=== PATIENT | female | born 1960 | race American Indian/Alaskan Native ===

== ENCOUNTER 2017-09-25 12:51 | Emergency (ER) | payer BC, OTHER ==
--- NOTE | 2017-09-25 13:07 | EDM.PDOC ---
ED HPI GENERAL MEDICAL PROBLEM - General Chief Complaint: General Stated Complaint: high blood sugar Time Seen by Provider: 09/25/17 13:03 - History of Present Illness INITIAL COMMENTS - FREE TEXT/NARRATIVE: HISTORY AND PHYSICAL: History of present illness: Patient 57-year-old female was sent from oncology for hyperglycemia patient a known diabetic and does have a sliding scale her blood sugar is noted to be 550 she is currently receiving polytherapy for an osteomyelitis she states her sliding scale requires 15 units for blood sugar greater than 500. She denies any other complaints Review of systems: As per history of present illness and below otherwise all systems reviewed and negative. Past medical history: As per history of present illness and as reviewed below otherwise noncontributory. Surgical history: As per history of present illness and as reviewed below otherwise noncontributory. Social history: No reported history of drug or alcohol abuse. Family history: As per history of present illness and as reviewed below otherwise noncontributory. Physical exam: HEENT: Atraumatic, normocephalic, pupils reactive, negative for conjunctival pallor or scleral icterus, mucous membranes moist, throat clear, neck supple, nontender, trachea midline. Lungs: Clear to auscultation, breath sounds equal bilaterally, chest nontender. Heart: S1S2, regular, negative for clicks, rubs, or JVD. Abdomen: Soft, nondistended, nontender. Negative for masses or hepatosplenomegaly. Negative for costovertebral tenderness. Pelvis: Stable nontender. Genitourinary: Deferred. Rectal: Deferred. Extremities: negative for cords or calf pain. Neurovascular unremarkable. Neuro: Awake, alert, oriented. Cranial nerves II through XII unremarkable. Cerebellum unremarkable. Motor and sensory unremarkable throughout. Exam nonfocal. Diagnostics: Patient's labs were reviewed Therapeutics: Saline 1 L bolus Regular Insulin 15 units subcutaneous Impression: #1 hyperglycemia with insulin-dependent diabetes #2 history of osteomyelitis Definitive disposition and diagnosis as appropriate pending reevaluation and review of above. - Related Data Allergies Allergy/AdvReac Type Severity Reaction Status Date / Time No Known Allergies Allergy Verified 09/18/17 22:37 ED ROS GENERAL - Review of Systems Review Of Systems: ROS reveals no pertinent complaints other than HPI. ED EXAM, GENERAL - Physical Exam Exam: See Below (The dictation) Departure - Departure Time of Disposition: 13:06 Disposition: Home, Self-Care 01 Condition: Good Clinical Impression: Diabetes, History of osteomyelitis - Discharge Information Referrals: PCP,None [Primary Care Provider] - Additional Instructions: The following information is given to patients seen in the emergency department who are being discharged to home. This information is to outline your options for follow-up care. We provide all patients seen in our emergency department with a follow-up referral. The need for follow-up, as well as the timing and circumstances, are variable depending upon the specifics of your emergency department visit. If you don't have a primary care physician on staff, we will provide you with a referral. We always advise you to contact your personal physician following an emergency department visit to inform them of the circumstance of the visit and for follow-up with them and/or the need for any referrals to a consulting specialist. The emergency department will also refer you to a specialist when appropriate. This referral assures that you have the opportunity for followup care with a specialist. All of these measure are taken in an effort to provide you with optimal care, which includes your followup. Under all circumstances we always encourage you to contact your private physician who remains a resource for coordinating your care. When calling for followup care, please make the office aware that this follow-up is from your recent emergency room visit. If for any reason you are refused follow-up, please contact the [facility] emergency department at and asked to speak to the emergency department charge nurse. Follow-up oncology and primary medical doctor as discussed sliding scale as directed push fluids return as needed as discussed
[2017-09-25] MEDS ORDERED: Sodium Chloride 0.9% 1,000 ML IV STA (13:12)
[2017-09-25] MEDS ORDERED: Insulin Regular, Human 100 Units/ML 10 ML Vial SUBCUT STA (13:12)
== END 2017-09-25 15:10 | disposition home or self-care (01) ==
LOC: MW.ED 12:51
DX: E11.65 Type 2 diabetes mellitus with hyperglycemia (principal); M86.9 Osteomyelitis, unspecified
CPT/HCPCS: 96360; 96372; 99283; J7040; 99282; J1815-GY

== ENCOUNTER 2018-02-04 09:57 | Day surgery (SDC) | payer BC, OTHER ==
[~2018-02-04 09:57] MED LIST: Lactated Ringers 1,000 ML IV SCH; Propofol 200 MG/20 ML SDV ONE; Sodium Chloride 0.9% 10 ML Syringe FLUSH PRN; Sodium Chloride 0.9% 2.5 ML Syringe FLUSH PRN
--- NOTE | 2018-02-04 10:50 | PCM.PREANE ---
Preanesthetic Assessment - Anesthesia/Transfusion/Family Hx Anesthesia History: Prior Anesthesia Without Reaction Family History of Anesthesia Reaction: No Transfusion History: No Prior Transfusion(s) Intubation History: Unknown - Review of Systems General: No Symptoms Pulmonary: No Symptoms Cardiovascular: No Symptoms Gastrointestinal: No Symptoms, Other (colonoscopy 5 years ago - polyps) Neurological: No Symptoms Other: Reports: None - Physical Assessment Height: 1.6 m Weight: 71.214 kg ASA Class: 3 Mental Status: Alert & Oriented x3 Airway Class: Mallampati = 2 Dentition: Reports: Partial (upper and lower) Thyro-Mental Finger Breadths: 3 Mouth Opening Finger Breadths: 2 ROM/Head Extension: Full Lungs: Clear to Auscultation, Normal Respiratory Effort Cardiovascular: Regular Rate, Regular Rhythm - Allergies Allergies/Adverse Reactions: Allergies Allergy/AdvReac Type Severity Reaction Status Date / Time imfampin Allergy Itching Uncoded 01/27/18 12:36 - Blood Blood Available: No - Anesthesia Plan Pre-Op Medication Ordered: None - Acknowledgements Anesthesia Type Planned: MAC Pt an Appropriate Candidate for the Planned Anesthesia: Yes Alternatives and Risks of Anesthesia Discussed w Pt/Guardian: Yes Pt/Guardian Understands and Agrees with Anesthesia Plan: Yes PreAnesthesia Questionnaire HEENT History: Reports: Cataract Cardiovascular History: Reports: Blood Clots/VTE/DVT, CAD, High Cholesterol, Hypertension, [place], Stents (x3 last one in ), Other (See Below) (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) Other Cardiovascular History: hx of [place] x2, last in 2001- denies current chest pain, SOB, was told she had 2 blood clots in her right leg and 1 in her left leg 3 months ago Gastrointestinal History: Reports: Colon Polyp, GERD 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: Musculoskeletal History: Reports: Arthritis, Back Pain, Chronic, Fracture Other Musculoskeletal History: hx of fx left arm Neurological History: Reports: Neuropathy, Peripheral, TIA Other Neuro History: degenerative disc disease in lower back, hx of motion sickness, hx of a "mini stroke" March 2017, no residual Psychiatric History: Reports: Anxiety, Depression Endocrine/Metabolic History: Reports: Diabetes, Type II, Hypothyroidism Hematologic History: Reports: Anemia, Anticoagulation Therapy - Past Surgical History Head Surgeries/Procedures: Reports: None HEENT Surgical History: Reports: Cataract Surgery, Tonsillectomy Cardiovascular Surgical History: Reports: Coronary Artery Stent Other Cardiovascular Surgeries/Procedures: hx of Angiogram with stent placement x3 GI Surgical History: Reports: Colonoscopy (x2) Musculoskeletal Surgical History: Reports: Other (See Below) Other Musculoskeletal Surgeries/Procedures:: 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 - SUBSTANCE USE Smoking Status *Q: Current Every Day Smoker (down to 6-7 cigarettes per day) Tobacco Use Within Last Twelve Months: Cigarettes Recreational Drug Use History: No - HOME MEDS Home Medications: Home Meds Ascorbic Acid [Vitamin C] 1 tab PO DAILY 01/27/18 [History] Aspirin/Calcium Carbonate/Mag [Aspirin Buffered] 325 mg PO DAILY 01/27/18 [ History] Carvedilol 12.5 mg PO BID 01/27/18 [History] Clopidogrel [Plavix] 75 mg PO DAILY 01/27/18 [History] Furosemide 40 mg PO QAM 01/27/18 [History] Hydrochlorothiazide 25 mg PO DAILY 01/27/18 [History] Insulin Aspart [Novolog Flexpen] 0 unit SQ ASDIRECTED 01/27/18 [History] Insulin Detemir [Levemir] 40 unit SQ QAM 01/27/18 [History] Insulin Detemir [Levemir] 50 unit SQ ACLUNCH 01/27/18 [History] Iron 1 tab PO DAILY 01/27/18 [History] Isosorbide Dinitrate 20 mg PO BID 01/27/18 [History] Lansoprazole [Prevacid] 30 mg PO DAILY 01/27/18 [History] Levothyroxine Sodium [Synthroid] 175 mg PO DAILY 01/27/18 [History] Multivitamin/Iron/Folic Acid [Centrum Adults Tablet] 1 tab PO DAILY 01/27/18 [ History] Quinapril [Accupril] 20 mg PO BEDTIME 01/27/18 [History] Rosuvastatin Calcium 40 mg PO DAILY 01/27/18 [History] Vitamin E 1 cap PO DAILY 01/27/18 [History] buPROPion [buPROPion XL] 150 mg PO DAILY 01/27/18 [History] traMADol HCl [Tramadol HCl] 100 mg PO BID 01/27/18 [History] - CURRENT (IN HOUSE) MEDS Current Meds: Current Medications Lactated Ringer's (Ringers, Lactated) 1,000 mls @ 125 mls/hr IV ASDIRECTED ARIK Sodium Chloride (Saline Flush) 10 ml FLUSH ASDIRECTED PRN PRN Reason: Keep Vein Open Sodium Chloride (Saline Flush) 2.5 ml FLUSH ASDIRECTED PRN PRN Reason: Keep Vein Open Sodium Chloride (Saline Flush) 10 ml FLUSH ASDIRECTED PRN PRN Reason: Keep Vein Open Sodium Chloride (Saline Flush) 2.5 ml FLUSH ASDIRECTED PRN PRN Reason: Keep Vein Open Discontinued Medications Lidocaine HCl (Xylocaine-Mpf 1%) Confirm Administered Dose 5 ml .ROUTE .STK-MED ONE Stop: 02/04/18 09:50 Propofol (Diprivan 20 Ml) Confirm Administered Dose 400 mg .ROUTE .STK-MED ONE Stop: 02/04/18 09:50
--- NOTE | 2018-02-04 12:13 | PCM.POSTAN ---
POST ANESTHESIA ASSESSMENT - MENTAL STATUS Mental Status: Alert, Oriented - RESPIRATORY Respiratory Status: Respiratory Rate WNL, Airway Patent, O2 Saturation Stable - CARDIOVASCULAR CV Status: Pulse Rate WNL - GASTROINTESTINAL GI Status: No Symptoms - PAIN Pain Score: 0 - POST OP HYDRATION Hydration Status: Adequate & Stable - OBSERVATIONS Free Text/Narrative:: no anesthesia problems
--- NOTE | 2018-02-04 14:30 | PCM.OPNOTE ---
- General Post-Op/Procedure Note Date of Surgery/Procedure: 02/04/18 Operative Procedure(s): Colonoscopy Findings: Sigmoid colon polyp Pre Op Diagnosis: History of colon polyps Post-Op Diagnosis: Sigmoid colon polyp Anesthesia Technique: MAC Primary Surgeon: Herminia Parr Condition: Good Free Text/Narrative:: Intake & Output 02/03/18 02/04/18 02/04/18 22:59 06:59 14:59 Intake Total 725 Balance 725
--- NOTE | 2018-02-04 17:01 | OR ---
SURGEON: TERRENCE DON MD DATE OF PROCEDURE: 02/04/2018 PREOPERATIVE DIAGNOSIS: Personal history of colon polyps. POSTOPERATIVE DIAGNOSIS: Sigmoid colon polyp. PROCEDURE PERFORMED: Screening colonoscopy. ANESTHESIA: MAC. INSTRUMENT USED: Olympus colonoscope. EXTENT OF EXAM: To the cecum. PREPARATION: Good. LIMITATIONS: None. INDICATION FOR EXAMINATION: The patient is a 57-year-old female, who presents with a personal history of colon polyps, and a family history of colon cancer. The decision was made to proceed with a colonoscopy. The patient and I discussed the procedure, expected perioperative course, and risks including bleeding, infection, or damage to surrounding structures including perforation. The patient verbalized understanding and wishes to proceed. PROCEDURE IN DETAIL: The patient was brought into the endoscopy suite and placed in left lateral decubitus position. A time-out was completed verifying the patient's name, age, date of , allergies, and procedure to be performed. Monitored anesthesia care was induced and continuous oxygen was provided via nasal cannula throughout the procedure. After adequate sedation was achieved, a digital rectal exam was performed. This exam was within normal limits. A well lubricated colonoscope was inserted in the rectum and advanced under direct visualization to the level of cecum. The cecum was identified by both visual and anatomic landmarks. A photograph was taken of the cecal cap. I retroflexed the scope within the cecum, but did not take a photo. The scope was then fully withdrawn while examining the color, texture, anatomy, and integrity of the mucosa from the cecum to the anal canal. The patient was found to have a 1 to 2 mm sessile polyp within the distal sigmoid colon. This was removed using a cold biopsy forceps. The remainder of the colon appeared normal. The scope was brought into the rectum and retroflexed to allow visualization of the anal canal opening. This appeared normal and a photograph was taken. The scope was then straightened out and fully withdrawn. The cecum to anus time was 11 minutes. The patient tolerated the procedure well and was taken to PACU in stable condition. ENDOSCOPIC DIAGNOSIS: Sigmoid colon polyp. RECOMMENDATIONS: Follow up in clinic in 2 weeks. PATRICK LEMON /[id number]
== END 2018-02-04 13:54 | disposition home or self-care (01) ==
LOC: MW.SDS 09:57
PROVIDERS: ATTEND Surgery
DX: Z12.11 Encounter for screening for malignant neoplasm of colon (principal); Z86.010 Personal history of colon polyps; Z80.0 Family history of malignant neoplasm of digestive organs; K21.9 Gastro-esophageal reflux disease without esophagitis; I25.10 Atherosclerotic heart disease of native coronary artery without angina pectoris; Z72.0 Tobacco use; Z98.890 Other specified postprocedural states; Z95.5 Presence of coronary angioplasty implant and graft; Z79.4 Long term (current) use of insulin; Z79.899 Other long term (current) drug therapy
CPT/HCPCS: 00812; 88305; J2704

== ENCOUNTER 2018-11-20 22:52 | Emergency (ER) | payer BC, OTHER ==
[2018-11-20] MEDS ORDERED: Sodium Chloride 0.9% 1,000 ML IV ONE (22:53)
--- NOTE | 2018-11-20 22:56 | EDM.PDOC ---
ED HPI GENERAL MEDICAL PROBLEM - General Chief Complaint: Chest Pain Stated Complaint: PT HAS CHEST PAINS Time Seen by Provider: 11/20/18 22:55 Source of Information: Reports: Patient - History of Present Illness INITIAL COMMENTS - FREE TEXT/NARRATIVE: HISTORY AND PHYSICAL: History of present illness: patient presents with an episode of chest pain at approximately 6 PM she did take 2 nitroglycerin with a baby aspirin a shunt arm neck or jaw no diaphoresis or shortness of breath She presents asymptomatic by private vehicle No fever nausea vomiting chills sweats no chest pain shortness breath headache dizziness or palpitation no bowel or urine symptoms History of SC 2 with stenting in 2001 Review of systems: As per history of present illness and below otherwise all systems reviewed and negative. Past medical history: As per history of present illness and as reviewed below otherwise noncontributory. Surgical history: As per history of present illness and as reviewed below otherwise noncontributory. Social history: No reported history of drug or alcohol abuse. Family history: As per history of present illness and as reviewed below otherwise noncontributory. Physical exam: HEENT: Atraumatic, normocephalic, pupils reactive, negative for conjunctival pallor or scleral icterus, mucous membranes moist, throat clear, neck supple, nontender, trachea midline. Lungs: Clear to auscultation, breath sounds equal bilaterally, chest nontender. Heart: S1S2, regular, negative for clicks, rubs, or JVD. Abdomen: Soft, nondistended, nontender. Negative for masses or hepatosplenomegaly. Negative for costovertebral tenderness. Pelvis: Stable nontender. Genitourinary: Deferred. Rectal: Deferred. Extremities: Atraumatic, negative for cords or calf pain. Neurovascular unremarkable. Neuro: Awake, alert, oriented. Cranial nerves II through XII unremarkable. Cerebellum unremarkable. Motor and sensory unremarkable throughout. Exam nonfocal. Diagnostics: [CBC CMP and INR troponin lipase UA EKG Chest 1 view ] Therapeutics: [ saline bolus Patient took 2 sublingual nitroglycerin at home with resolution of chest pain Patient also took a Nalini aspirin at home Patient was offered observation admission however as were on diversion requiring transferred to [place], patient refuses admission here , refuses transfer she was Lopressor 5 mg IV ] Impression: [ chest pain -resolved] Chronic history of baseline Medical screening exam Definitive disposition and diagnosis as appropriate pending reevaluation and review of above. chest pain Pain Score (Numeric/FACES): 1 - Related Data Allergies Allergy/AdvReac Type Severity Reaction Status Date / Time imfampin Allergy Itching Uncoded 11/20/18 22:55 Home Meds: Home Meds Ascorbic Acid [Vitamin C] 1 tab PO DAILY 01/27/18 [History] Aspirin/Calcium Carbonate/Mag [Aspirin Buffered] 325 mg PO DAILY 01/27/18 [ History] Carvedilol 12.5 mg PO BID 01/27/18 [History] Clopidogrel [Plavix] 75 mg PO DAILY 01/27/18 [History] Furosemide 20 mg PO QAM 01/27/18 [History] Insulin Aspart [Novolog Flexpen] 0 unit SQ ASDIRECTED 01/27/18 [History] Iron 150 mg PO DAILY 01/27/18 [History] Isosorbide Dinitrate 20 mg PO BID 01/27/18 [History] Lansoprazole [Prevacid] 30 mg PO DAILY 01/27/18 [History] Levothyroxine Sodium [Synthroid] 0.125 mg PO DAILY 01/27/18 [History] Multivitamin/Iron/Folic Acid [Centrum Adults Tablet] 1 tab PO DAILY 01/27/18 [ History] Quinapril [Accupril] 20 mg PO BEDTIME 01/27/18 [History] Rosuvastatin Calcium 40 mg PO DAILY 01/27/18 [History] Vitamin E 1 cap PO DAILY 01/27/18 [History] buPROPion [buPROPion XL] 150 mg PO DAILY 01/27/18 [History] hydroCHLOROthiazide [Hydrochlorothiazide] 25 mg PO DAILY 01/27/18 [History] traMADol HCl [Tramadol HCl] 100 mg PO BID 01/27/18 [History] Biotin 1,000 mg PO DAILY 10/26/18 [History] Cholecalciferol (Vitamin D3) [Vitamin D3] 25 mg PO DAILY 10/26/18 [History] oxyCODONE HCl [Oxycodone HCl] 20 mg PO DAILY 11/20/18 [History] Past Medical History HEENT History: Reports: Cataract Cardiovascular History: Reports: Blood Clots/VTE/DVT, CAD, High Cholesterol, Hypertension, [place], Stents, Other (See Below) Other Cardiovascular History: hx of [place] x2, last in 2001- denies current chest pain, SOB, was told she had 2 blood clots in her right leg and 1 in her left leg 3 months ago Gastrointestinal History: Reports: Colon Polyp, GERD 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: Musculoskeletal History: Reports: Arthritis, Back Pain, Chronic, Fracture Other Musculoskeletal History: hx of fx left arm Neurological History: Reports: Neuropathy, Peripheral, TIA Other Neuro History: degenerative disc disease in lower back, hx of motion sickness, hx of a "mini stroke" March 2017, no residual Psychiatric History: Reports: Anxiety, Depression Endocrine/Metabolic History: Reports: Diabetes, Type II, Hypothyroidism Hematologic History: Reports: Anemia, Anticoagulation Therapy - Past Surgical History Head Surgeries/Procedures: Reports: None HEENT Surgical History: Reports: Cataract Surgery, Tonsillectomy Cardiovascular Surgical History: Reports: Coronary Artery Stent Other Cardiovascular Surgeries/Procedures: hx of Angiogram with stent placement x3 GI Surgical History: Reports: Colonoscopy Musculoskeletal Surgical History: Reports: Other (See Below) Other Musculoskeletal Surgeries/Procedures:: 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 Social & Family History - Family History Family Medical History: Noncontributory - Caffeine Use Caffeine Use: Reports: Coffee ED ROS GENERAL - Review of Systems Review Of Systems: See Below ED EXAM, GENERAL - Physical Exam Exam: See Below Course - Vital Signs Last Recorded V/S: Last Vital Signs Temp 98.2 F 11/20/18 22:56 Pulse 78 11/20/18 23:31 Resp 18 11/20/18 22:56 BP 112/63 11/20/18 23:31 Pulse Ox 98 11/20/18 23:31 - Orders/Labs/Meds Orders: Active Orders 24 hr Category Date Time Status EKG Documentation Completion [RC] STAT Care 11/20/18 22:53 Active Chest 1V Frontal [CR] Stat Exams 11/20/18 22:53 Taken UA RFX VIRGILIO AND CULT IF INDIC [URIN] Stat Lab 11/20/18 22:53 Ordered Sodium Chloride 0.9% [Normal Saline] 1,000 ml Med 11/20/18 22:53 Active IV STAT Medication Orders Sodium Chloride (Normal Saline) 1,000 mls @ 999 mls/hr IV STAT ONE Stop: 11/20/18 23:53 Last Admin: 11/20/18 23:14 Dose: 999 mls/hr Labs: Laboratory Tests 11/20/18 11/20/1811/20/19 Range/Units 23:00 23:00 23:00 WBC 12.03 H (4.0-11.0) K/uL RBC 4.08 L (4.30-5.90) M/uL Hgb 12.0 (12.0-16.0) g/dL Hct 36.3 (36.0-46.0) % MCV 89.0 (80.0-98.0) fL MCH 29.4 (27.0-32.0) pg MCHC 33.1 (31.0-37.0) g/dL RDW Std Deviation 43.9 (28.0-62.0) fl RDW Coeff of Tam[place] 14 (11.0-15.0) % Plt Count 290 (150-400) K/uL MPV 8.90 (7.40-12.00) fL Neut % (Auto) 55.2 (48.0-80.0) % Lymph % (Auto) 31.0 (16.0-40.0) % [place] % (Auto) 8.2 (0.0-15.0) % Eos % (Auto) 5.3 (0.0-7.0) % Baso % (Auto) 0.3 (0.0-1.5) % Neut # (Auto) 6.6 H (1.4-5.7) K/uL Lymph # (Auto) 3.7 H (0.6-2.4) K/uL [place] # (Auto) 1.0 H (0.0-0.8) K/uL Eos # (Auto) 0.6 (0.0-0.7) K/uL Baso # (Auto) 0.0 (0.0-0.1) K/uL Nucleated RBC % 0.0 /100WBC Nucleated RBCs # 0 K/uL INR 1.04 Sodium 137 (136-145) mmol/L Potassium 3.3 L (3.5-5.1) mmol/L Chloride 99 (98-107) mmol/L Carbon Dioxide 29.2 (21.0-32.0) mmol/L BUN 31 H (7.0-18.0) mg/dL Creatinine 1.8 H (0.6-1.0) mg/dL Est Cr Clr Drug Dosing 27.84 mL/min Estimated GFR (MDRD) 28.8 ml/min Glucose 126 H (74-106) mg/dL Calcium 9.9 (8.5-10.1) mg/dL Total Bilirubin 0.4 (0.2-1.0) mg/dL AST 16 (15-37) IU/L ALT 35 (14-63) IU/L Alkaline Phosphatase 144 H (46-116) U/L Creatine Kinase 116 (26-308) U/L Troponin I < 0.050 (0.000-0.056) ng/mL Total Protein 7.3 (6.4-8.2) g/dL Albumin 3.7 (3.4-5.0) g/dL Globulin 3.6 (2.6-4.0) g/dL Albumin/Globulin Ratio 1.0 (0.9-1.6) Meds: Medications Generic Name Dose Route Start Last Admin Trade Name Freq PRN Reason Stop Dose Admin Sodium Chloride 1,000 mls @ 999 mls/hr 11/20/18 22:53 11/20/18 23:14 Normal Saline IV 11/20/18 23:53 999 mls/hr STAT ONE Administration Discontinued Medications Generic Name Dose Route Start Last Admin Trade Name Freq PRN Reason Stop Dose Admin Metoprolol Tartrate 5 mg 11/20/18 23:00 11/20/18 23:14 Lopressor IVPUSH 11/20/18 23:11 5 mg Q5M ARIK Administration Departure - Departure Time of Disposition: 23:49 Disposition: Home, Self-Care 01 Condition: Good Clinical Impression: Chest pain, Encounter for medical screening examination - Discharge Information Referrals: PCP,None [Primary Care Provider] - Forms: ED Department Discharge Additional Instructions: The following information is given to patients seen in the emergency department who are being discharged to home. This information is to outline your options for follow-up care. We provide all patients seen in our emergency department with a follow-up referral. The need for follow-up, as well as the timing and circumstances, are variable depending upon the specifics of your emergency department visit. If you don't have a primary care physician on staff, we will provide you with a referral. We always advise you to contact your personal physician following an emergency department visit to inform them of the circumstance of the visit and for follow-up with them and/or the need for any referrals to a consulting specialist. The emergency department will also refer you to a specialist when appropriate. This referral assures that you have the opportunity for follow-up care with a specialist. All of these measure are taken in an effort to provide you with optimal care, which includes your follow-up. Under all circumstances we always encourage you to contact your private physician who remains a resource for coordinating your care. When calling for follow-up care, please make the office aware that this follow-up is from your recent emergency room visit. If for any reason you are refused follow-up, please contact the [facility] emergency department at and asked to speak to the emergency department charge nurse. - My Orders Last 24 Hours: My Active Orders 11/20/18 22:53 EKG Documentation Completion [RC] STAT Chest 1V Frontal [CR] Stat UA RFX VIRGILIO AND CULT IF INDIC [URIN] Stat Sodium Chloride 0.9% [Normal Saline] 1,000 ml IV STAT - Assessment/Plan Last 24 Hours: My Active Orders 11/20/18 22:53 EKG Documentation Completion [RC] STAT Chest 1V Frontal [CR] Stat UA RFX VIRGILIO AND CULT IF INDIC [URIN] Stat Sodium Chloride 0.9% [Normal Saline] 1,000 ml IV STAT
[2018-11-20] MEDS ORDERED: Metoprolol Tartrate 5 MG/5 ML SDV IVPUSH SCH (23:00)
[2018-11-20 23:38] LABS: CHLORIDE,CL 99 mmol/L (98-107); SODIUM,NA 137 mmol/L (136-145)
--- NOTE | 2018-11-21 00:49 | CR ---
Indication: Chest pain Technique: Chest 1 view Comparison: August 14, 2013 Findings/Impression: Cardiovascular and mediastinum: Heart size and vasculature are normal in caliber and appearance. Mediastinum is within normal limits. Lungs and pleural space: Lungs are clear. No sign of infiltrate or mass. No sign of pleural effusion. No pneumothorax. Bones and soft tissues: No significant findings. Dictated by María Delgado MD @ Nov 21 2018 12:46AM Signed by Dr. María Delgado @ Nov 21 2018 12:48AM
== END 2018-11-20 23:59 | disposition home or self-care (01) ==
LOC: MW.ED 22:52
DX: R07.9 Chest pain, unspecified (principal); I25.2 Old myocardial infarction; F41.9 Anxiety disorder, unspecified; F32.9 Major depressive disorder, single episode, unspecified; I10 Essential (primary) hypertension; E11.9 Type 2 diabetes mellitus without complications; Z88.8 Allergy status to other drugs, medicaments and biological substances; Z79.82 Long term (current) use of aspirin; Z79.899 Other long term (current) drug therapy; Z79.4 Long term (current) use of insulin
CPT/HCPCS: 36415; 71045; 80053; 82550; 84484; 85025; 85610; 96361; 96374; 99285; J3490; J7040; 93005; 99284

== ENCOUNTER 2019-06-08 11:53 | Observation (INO) | payer BC, OTHER ==
[2019-06-08] MEDS ORDERED: Pantoprazole 40 MG Vial IVPUSH ONE (11:56)
[2019-06-08] MEDS ORDERED: Sodium Chloride 0.9% 1,000 ML IV ONE (11:56)
[2019-06-08] MEDS ORDERED: Sodium Chloride 0.9% 10 ML Syringe FLUSH PRN (11:56)
[2019-06-08] MEDS ORDERED: Sodium Chloride 0.9% 2.5 ML Syringe FLUSH PRN (11:56)
--- NOTE | 2019-06-08 12:00 | EDM.PDOC ---
ED HPI GENERAL MEDICAL PROBLEM - General Chief Complaint: Cardiovascular Problem Stated Complaint: REF FROM DR. ANDRADE Time Seen by Provider: 06/08/19 11:55 - History of Present Illness INITIAL COMMENTS - FREE TEXT/NARRATIVE: HISTORY AND PHYSICAL: History of present illness: Patient is a 59-year-old female with history of coronary artery disease with multiple stent and anemia who presents having been sent by her primary care physician after she was evaluated for heartburn and a routine physical exam today. Patient states she was reported to be hypotensive in her doctor's office with a systolic blood pressure of 80 patient denies any symptoms now states the heartburn is intermittent she does not have it on arrival here she denies chest pain shortness of breath or other concern Review of systems: As per history of present illness and below otherwise all systems reviewed and negative. Past medical history: As per history of present illness and as reviewed below otherwise noncontributory. Surgical history: As per history of present illness and as reviewed below otherwise noncontributory. Social history: No reported history of drug or alcohol abuse. Family history: As per history of present illness and as reviewed below otherwise noncontributory. Physical exam: HEENT: Atraumatic, normocephalic, pupils reactive, significant conjunctival pallor no scleral icterus, mucous membranes dry, throat clear, neck supple, nontender, trachea midline. Lungs: Clear to auscultation, breath sounds equal bilaterally, chest nontender. Heart: S1S2, regular, negative for clicks, rubs, or JVD. Abdomen: Soft, nondistended, nontender. Negative for masses or hepatosplenomegaly. Negative for costovertebral tenderness. Pelvis: Stable nontender. Genitourinary: Deferred. Rectal: Hemoccult negative Extremities: Atraumatic, negative for cords or calf pain. Neurovascular unremarkable. Neuro: Awake, alert, oriented. Cranial nerves II through XII unremarkable. Cerebellum unremarkable. Motor and sensory unremarkable throughout. Exam nonfocal. Diagnostics: CBC CMP and PT/INR chest x-ray EKG type and screen Hemoccult Therapeutics: IV O2 monitor saline 1 L bolus Protonix 80 mg IV Impression: #1 history coronary disease #2 anemia #3 history of hypotensive episode #4 history of Gerds Definitive disposition and diagnosis as appropriate pending reevaluation and review of above. - Related Data Allergies Allergy/AdvReac Type Severity Reaction Status Date / Time imfampin Allergy Itching Uncoded 11/20/18 22:55 Home Meds: Home Meds Ascorbic Acid [Vitamin C] 1 tab PO DAILY 01/27/18 [History] Aspirin/Calcium Carbonate/Mag [Aspirin Buffered] 325 mg PO DAILY 01/27/18 [ History] Carvedilol 12.5 mg PO BID 01/27/18 [History] Clopidogrel [Plavix] 75 mg PO DAILY 01/27/18 [History] Furosemide 20 mg PO QAM 01/27/18 [History] Insulin Aspart [Novolog Flexpen] 0 unit SQ ASDIRECTED 01/27/18 [History] Iron 150 mg PO DAILY 01/27/18 [History] Isosorbide Dinitrate 20 mg PO BID 01/27/18 [History] Lansoprazole [Prevacid] 30 mg PO DAILY 01/27/18 [History] Levothyroxine Sodium [Synthroid] 0.125 mg PO DAILY 01/27/18 [History] Multivitamin/Iron/Folic Acid [Centrum Adults Tablet] 1 tab PO DAILY 01/27/18 [ History] Quinapril [Accupril] 20 mg PO BEDTIME 01/27/18 [History] Rosuvastatin Calcium 40 mg PO DAILY 01/27/18 [History] Vitamin E 1 cap PO DAILY 01/27/18 [History] buPROPion [buPROPion XL] 150 mg PO DAILY 01/27/18 [History] hydroCHLOROthiazide [Hydrochlorothiazide] 25 mg PO DAILY 01/27/18 [History] traMADol HCl [Tramadol HCl] 100 mg PO BID 01/27/18 [History] Biotin 1,000 mg PO DAILY 10/26/18 [History] Cholecalciferol (Vitamin D3) [Vitamin D3] 25 mg PO DAILY 10/26/18 [History] oxyCODONE HCl [Oxycodone HCl] 20 mg PO DAILY 11/20/18 [History] Past Medical History HEENT History: Reports: Cataract Cardiovascular History: Reports: Blood Clots/VTE/DVT, CAD, High Cholesterol, Hypertension, ID, Stents, Other (See Below) Other Cardiovascular History: hx of ID x2, last in 2001- denies current chest pain, SOB, was told she had 2 blood clots in her right leg and 1 in her left leg 3 months ago Respiratory History: Reports: None Gastrointestinal History: Reports: Colon Polyp, GERD Genitourinary History: Reports: None [employer]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: Musculoskeletal History: Reports: Arthritis, Back Pain, Chronic, Fracture Other Musculoskeletal History: hx of fx left arm Neurological History: Reports: Neuropathy, Peripheral, TIA Other Neuro History: degenerative disc disease in lower back, hx of motion sickness, hx of a "mini stroke" March 2017, no residual Psychiatric History: Reports: Anxiety, Depression Endocrine/Metabolic History: Reports: Diabetes, Type II, Hypothyroidism Hematologic History: Reports: Anemia, Anticoagulation Therapy Immunologic History: Reports: None Oncologic (Cancer) History: Reports: None Dermatologic History: Reports: None - Infectious Disease History Infectious Disease History: Reports: Chicken Pox, Measles - Past Surgical History Head Surgeries/Procedures: Reports: None HEENT Surgical History: Reports: Cataract Surgery, Tonsillectomy Cardiovascular Surgical History: Reports: Coronary Artery Stent Other Cardiovascular Surgeries/Procedures: hx of Angiogram with stent placement x3 GI Surgical History: Reports: Colonoscopy Musculoskeletal Surgical History: Reports: Other (See Below) Other Musculoskeletal Surgeries/Procedures:: 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 ED EXAM, GENERAL - Physical Exam Exam: See Below (See dictation) Course - Vital Signs Last Recorded V/S: Last Vital Signs Temp 36.1 C 06/08/19 11:56 Pulse 98 06/08/19 11:56 Resp 18 06/08/19 11:56 BP 104/52 L 06/08/19 11:56 Pulse Ox 100 06/08/19 11:56 - Orders/Labs/Meds Orders: Active Orders 24 hr Category Date Time Status Cardiac Monitoring [RC] . DIRECTED Care 06/08/19 11:55 Active EKG Documentation Completion [RC] STAT Care 06/08/19 11:55 Active Oxygen Therapy, ED [RC] ASDIRECTED Care 06/08/19 11:55 Active Pulse Oximetry [RC] ASDIRECTED Care 06/08/19 11:55 Active Chest 1V Frontal [CR] Stat Exams 06/08/19 11:56 Taken Sodium Chloride 0.9% [Saline Flush] Med 06/08/19 11:56 Active 10 ml FLUSH ASDIRECTED PRN Sodium Chloride 0.9% [Saline Flush] Med 06/08/19 11:56 Active 2.5 ml FLUSH ASDIRECTED PRN Saline Lock Insert [OM.PC] Stat Oth 06/08/19 11:55 Ordered Medication Orders Sodium Chloride (Saline Flush) 10 ml FLUSH ASDIRECTED PRN PRN Reason: Keep Vein Open Sodium Chloride (Saline Flush) 2.5 ml FLUSH ASDIRECTED PRN PRN Reason: Keep Vein Open Labs: Laboratory Tests 06/08/19 06/08/19 06/08/19 Range/Units 11:55 11:55 11:55 WBC 12.44 H (4.0-11.0) K/uL RBC 3.54 L (4.30-5.90) M/uL Hgb 10.1 L (12.0-16.0) g/dL Hct 31.5 L (36.0-46.0) % MCV 89.0 (80.0-98.0) fL MCH 28.5 (27.0-32.0) pg MCHC 32.1 (31.0-37.0) g/dL RDW Std Deviation 50.1 (28.0-62.0) fl RDW Coeff of Tamica 15 (11.0-15.0) % Plt Count 302 (150-400) K/uL MPV 8.70 (7.40-12.00) fL Neut % (Auto) 64.5 (48.0-80.0) % Lymph % (Auto) 26.9 (16.0-40.0) % [place] % (Auto) 4.6 (0.0-15.0) % Eos % (Auto) 3.7 (0.0-7.0) % Baso % (Auto) 0.3 (0.0-1.5) % Neut # (Auto) 8.0 H (1.4-5.7) K/uL Lymph # (Auto) 3.4 H (0.6-2.4) K/uL [place] # (Auto) 0.6 (0.0-0.8) K/uL Eos # (Auto) 0.5 (0.0-0.7) K/uL Baso # (Auto) 0.0 (0.0-0.1) K/uL Nucleated RBC % 0.0 /100WBC Nucleated RBCs # 0 K/uL INR 1.00 Sodium 142 (136-145) mmol/L Potassium 3.6 (3.5-5.1) mmol/L Chloride 105 (98-107) mmol/L Carbon Dioxide 25.5 (21.0-32.0) mmol/L BUN 38 H (7.0-18.0) mg/dL Creatinine 1.6 H (0.6-1.0) mg/dL Est Cr Clr Drug Dosing 30.93 mL/min Estimated GFR (MDRD) 32.9 ml/min Glucose 99 (74-106) mg/dL Calcium 9.6 (8.5-10.1) mg/dL Total Bilirubin 0.4 (0.2-1.0) mg/dL AST 16 (15-37) IU/L ALT 27 (14-63) IU/L Alkaline Phosphatase 126 H (46-116) U/L Troponin I < 0.050 (0.000-0.056) ng/mL Total Protein 7.0 (6.4-8.2) g/dL Albumin 3.3 L (3.4-5.0) g/dL Globulin 3.7 (2.6-4.0) g/dL Albumin/Globulin Ratio 0.9 (0.9-1.6) Blood Type Antibody Screen 06/08/19 Range/Units 12:10 WBC (4.0-11.0) K/uL RBC (4.30-5.90) M/uL Hgb (12.0-16.0) g/dL Hct (36.0-46.0) % MCV (80.0-98.0) fL MCH (27.0-32.0) pg MCHC (31.0-37.0) g/dL RDW Std Deviation (28.0-62.0) fl RDW Coeff of Tamica (11.0-15.0) % Plt Count (150-400) K/uL MPV (7.40-12.00) fL Neut % (Auto) (48.0-80.0) % Lymph % (Auto) (16.0-40.0) % [place] % (Auto) (0.0-15.0) % Eos % (Auto) (0.0-7.0) % Baso % (Auto) (0.0-1.5) % Neut # (Auto) (1.4-5.7) K/uL Lymph # (Auto) (0.6-2.4) K/uL [place] # (Auto) (0.0-0.8) K/uL Eos # (Auto) (0.0-0.7) K/uL Baso # (Auto) (0.0-0.1) K/uL Nucleated RBC % /100WBC Nucleated RBCs # K/uL INR Sodium (136-145) mmol/L Potassium (3.5-5.1) mmol/L Chloride (98-107) mmol/L Carbon Dioxide (21.0-32.0) mmol/L BUN (7.0-18.0) mg/dL Creatinine (0.6-1.0) mg/dL Est Cr Clr Drug Dosing mL/min Estimated GFR (MDRD) ml/min Glucose (74-106) mg/dL Calcium (8.5-10.1) mg/dL Total Bilirubin (0.2-1.0) mg/dL AST (15-37) IU/L ALT (14-63) IU/L Alkaline Phosphatase (46-116) U/L Troponin I (0.000-0.056) ng/mL Total Protein (6.4-8.2) g/dL Albumin (3.4-5.0) g/dL Globulin (2.6-4.0) g/dL Albumin/Globulin Ratio (0.9-1.6) Blood Type AB POSITIVE Antibody Screen NEGATIVE Meds: Medications Generic Name Dose Route Start Last Admin Trade Name Freq PRN Reason Stop Dose Admin Sodium Chloride 10 ml 06/08/19 11:56 Saline Flush FLUSH ASDIRECTED PRN Keep Vein Open Sodium Chloride 2.5 ml 06/08/19 11:56 Saline Flush FLUSH ASDIRECTED PRN Keep Vein Open Discontinued Medications Generic Name Dose Route Start Last Admin Trade Name Freq PRN Reason Stop Dose Admin Sodium Chloride 1,000 mls @ 999 mls/hr 06/08/19 11:56 06/08/19 12:08 Normal Saline IV 06/08/19 12:56 999 mls/hr STAT ONE Administration Sodium Chloride Confirm 06/08/19 12:02 Normal Saline Administered 06/08/19 12:03 Dose 20 mls @ as directed .ROUTE .STK-MED ONE Pantoprazole Sodium 80 mg 06/08/19 11:56 06/08/19 12:08 Protonix Iv IVPUSH 06/08/19 11:57 80 mg .BOLUS ONE Administration Departure - Departure Time of Disposition: 13:12 Disposition: Refer to Observation Condition: Good Clinical Impression: Coronary artery disease, Hypotensive episode, Gastroesophageal reflux disease, Diabetes Referrals: Leona Andrade MD [Primary Care Provider] - Forms: ED Department Discharge - My Orders Last 24 Hours: My Active Orders 06/08/19 11:55 Cardiac Monitoring [RC] . DIRECTED EKG Documentation Completion [RC] STAT Oxygen Therapy, ED [RC] ASDIRECTED Pulse Oximetry [RC] ASDIRECTED Saline Lock Insert [OM.PC] Stat 06/08/19 11:56 Chest 1V Frontal [CR] Stat Sodium Chloride 0.9% [Saline Flush] 10 ml FLUSH ASDIRECTED PRN Sodium Chloride 0.9% [Saline Flush] 2.5 ml FLUSH ASDIRECTED PRN - Assessment/Plan Last 24 Hours: My Active Orders 06/08/19 11:55 Cardiac Monitoring [RC] . DIRECTED EKG Documentation Completion [RC] STAT Oxygen Therapy, ED [RC] ASDIRECTED Pulse Oximetry [RC] ASDIRECTED Saline Lock Insert [OM.PC] Stat 06/08/19 11:56 Chest 1V Frontal [CR] Stat Sodium Chloride 0.9% [Saline Flush] 10 ml FLUSH ASDIRECTED PRN Sodium Chloride 0.9% [Saline Flush] 2.5 ml FLUSH ASDIRECTED PRN
[2019-06-08] MEDS ORDERED: Sodium Chloride 0.9% 20 ML ONE (12:02)
[2019-06-08 12:48] LABS: BLOOD UREA NITROGEN,BUN 38 mg/dL (7.0-18.0); CARBON DIOXIDE,CO2 25.5 mmol/L (21.0-32.0); CHLORIDE,CL 105 mmol/L (98-107); GLUCOSE RANDOM 99 mg/dL (74-106); POTASSIUM,K 3.6 mmol/L (3.5-5.1); SODIUM,NA 142 mmol/L (136-145)
--- NOTE | 2019-06-08 13:41 | CR ---
INDICATION: Dyspnea and chest pain. TECHNIQUE: Chest 1 view COMPARISON: Chest radiograph 11/20/2018. FINDINGS: No significant change since prior exam. No focal consolidation, pleural effusion, or pneumothorax. Normal heart size and pulmonary vascularity. IMPRESSION: Stable exam. No acute cardiopulmonary findings. Dictated by Radha Hou MD @ Jun 08 2019 1:36PM Signed by Dr. Radha Hou @ Jun 08 2019 1:38PM
[2019-06-08] MEDS ORDERED: Sodium Chloride 0.9% 1,000 ML IV STA (14:52)
[2019-06-08] MEDS ORDERED: Acetaminophen 325 MG Tab PO PRN (14:54)
[2019-06-08] MEDS ORDERED: Ondansetron 4 MG/2 ML SDV IVPUSH PRN (14:54)
[2019-06-08] MEDS ORDERED: Ondansetron 4 MG Tab.DIS PO PRN (14:54)
[2019-06-08] MEDS ORDERED: Enoxaparin 30 MG/0.3 ML Syringe SUBCUT SCH (15:00)
--- NOTE | 2019-06-08 15:16 | PCM.HP ---
H&P History of Present Illness - General Date of Service: 06/08/19 Admit Problem/Dx: Admission Diagnosis/Problem Admission Diagnosis/Problem Coronary artery disease - History of Present Illness Initial Comments - Free Text/Narative: Patient is a 59-year-old female who presents today after being sent from her PCP office for hypotension. Patient has a history of CAD sp stens, anemia, HTN, DM Type 1, stroke and hypothyroidism. Patient was being seen by PCP for 3- month diabetic follow-up appointment and was noted to have a blood pressure with a systolic in the ~80's. She was also complaining of increased heartburn over the past few weeks and was then sent to [facility] ER for further evaluation as she has a history of CAD sp stent placement. Patient reports that she has suffered from heartburn for a while now and takes medication for it. She reports feeling mild burning pain in substernal location, not relieve by rest and is not aggravated by exertion. She smokes 2-3 cigarettes per day currently and has been smoking for the past 47 years. She reports feeling lightheaded over the past few days. Patient further reports that she has a wound on her right foot stump for the past few weeks which formed after she had been walking on it. She saw managed care nurse a few weeks ago who recommended daily dressings and applying "a cream." She is due back for follow-up for the foot wound with managed care nurse in about 1 week. She denies having any fevers, shortness of breath, nausea, vomiting or sweats. She does have residual numbness in the left side of her face and left hand after suffering from a stroke previously. In [facility] ER, patient's blood pressure was 104/52 but did drop as low as 93/53. Patient received 1 liter fluid bolus and initial troponin was negative. CXR showed no acute abnormalities. Hemoccult screen was negative. Admitted for further evaluation and ACS rule out. - Related Data Allergies/Adverse Reactions: Allergies Allergy/AdvReac Type Severity Reaction Status Date / Time rifampin [From Rifadin] Allergy Diaphoresis Verified 06/08/19 14:50 Home Medications: Home Meds Carvedilol 12.5 mg PO BID 01/27/18 [History] Clopidogrel [Plavix] 75 mg PO DAILY 01/27/18 [History] Lansoprazole [Prevacid] 30 mg PO DAILY 01/27/18 [History] Quinapril [Accupril] 20 mg PO BEDTIME 01/27/18 [History] Rosuvastatin Calcium 40 mg PO BEDTIME 01/27/18 [History] Amitriptyline [Elavil] 10 mg PO BEDTIME 06/08/19 [History] Diclofenac Sodium 1 applic TP TID PRN 06/08/19 [History] Furosemide 20 mg PO QPM 06/08/19 [History] Furosemide 40 mg PO QAM 06/08/19 [History] Insulin Aspart [NovoLOG] 0 unit SQ DAILY 06/08/19 [History] Levothyroxine 150 mcg PO ACBREAKFAST 06/08/19 [History] Oxycodone Myristate [Xtampza ER] 9 mg PO Q12H 06/08/19 [History] buPROPion HCl [Wellbutrin SR] 150 mg PO DAILY 06/08/19 [History] hydroCHLOROthiazide [Hydrochlorothiazide] 25 mg PO DAILY 06/08/19 [History] traMADol [Ultram] 100 mg PO Q6H PRN 06/08/19 [History] Past Medical History HEENT History: Reports: Cataract Cardiovascular History: Reports: Blood Clots/VTE/DVT, CAD, High Cholesterol, Hypertension, [place], Stents, Other (See Below) Other Cardiovascular History: hx of [place] x2, last in 2001- denies current chest pain, SOB, was told she had 2 blood clots in her right leg and 1 in her left leg 3 months ago Respiratory History: Reports: None Gastrointestinal History: Reports: Colon Polyp, GERD Genitourinary History: Reports: None CUTTER DOWN History: Reports: Musculoskeletal History: Reports: Arthritis, Back Pain, Chronic, Fracture Other Musculoskeletal History: hx of fx left arm Neurological History: Reports: Neuropathy, Peripheral, TIA Other Neuro History: degenerative disc disease in lower back, hx of motion sickness, hx of a "mini stroke" March 2017, no residual Psychiatric History: Reports: Anxiety, Depression Endocrine/Metabolic History: Reports: Diabetes, Type II, Hypothyroidism Hematologic History: Reports: Anemia, Anticoagulation Therapy Immunologic History: Reports: None Oncologic (Cancer) History: Reports: None Dermatologic History: Reports: None - Infectious Disease History Infectious Disease History: Reports: Chicken Pox, Measles - Past Surgical History Head Surgeries/Procedures: Reports: None HEENT Surgical History: Reports: Cataract Surgery, Tonsillectomy Cardiovascular Surgical History: Reports: Coronary Artery Stent Other Cardiovascular Surgeries/Procedures: hx of Angiogram with stent placement x3 GI Surgical History: Reports: Colonoscopy Musculoskeletal Surgical History: Reports: Other (See Below) Other Musculoskeletal Surgeries/Procedures:: 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 Exam - Exam Exam: See Below - Vital Signs Vital Signs: Last Vital Signs Temp 97.9 F 06/08/19 13:25 Pulse 86 06/08/19 13:25 Resp 18 06/08/19 13:25 BP 95/49 L 06/08/19 13:25 Pulse Ox 99 06/08/19 13:25 Weight: 177 lb 5 oz - Exam General: Alert, Oriented, Cooperative, Other (No acute distress.) HEENT: Conjunctiva Clear, EOMI, Mucosa Moist & [place], Posterior Pharynx Clear, Pupils Equal, Pupils Reactive Neck: Supple, Trachea Midline Lungs: Clear to Auscultation, Normal Respiratory Effort Cardiovascular: Regular Rate, Regular Rhythm GI/Abdominal Exam: Normal Bowel Sounds, Soft, Non-Tender, No Distention Extremities: Other (Right foot amputation. There is an approximately 3cm x 2cm wound site on plantar surface of right foot. No active drainage appreciated. Non -tender to palpation. No calf tenderness. ) Neurological: Cranial Nerves Intact, Strength Equal Bilateral, Normal Tone Neuro Extensive - Mental Status: Alert, Oriented x3 Psychiatric: Alert, Normal Affect, Normal Mood - Patient Data Lab Results Last 24 hrs: Laboratory Results - last 24 hr 06/08/19 06/08/19 06/08/19 Range/Units 11:55 11:55 11:55 WBC 12.44 H (4.0-11.0) K/uL RBC 3.54 L (4.30-5.90) M/uL Hgb 10.1 L (12.0-16.0) g/dL Hct 31.5 L (36.0-46.0) % MCV 89.0 (80.0-98.0) fL MCH 28.5 (27.0-32.0) pg MCHC 32.1 (31.0-37.0) g/dL RDW Std Deviation 50.1 (28.0-62.0) fl RDW Coeff of Tam[place] 15 (11.0-15.0) % Plt Count 302 (150-400) K/uL MPV 8.70 (7.40-12.00) fL Neut % (Auto) 64.5 (48.0-80.0) % Lymph % (Auto) 26.9 (16.0-40.0) % [place] % (Auto) 4.6 (0.0-15.0) % Eos % (Auto) 3.7 (0.0-7.0) % Baso % (Auto) 0.3 (0.0-1.5) % Neut # (Auto) 8.0 H (1.4-5.7) K/uL Lymph # (Auto) 3.4 H (0.6-2.4) K/uL [place] # (Auto) 0.6 (0.0-0.8) K/uL Eos # (Auto) 0.5 (0.0-0.7) K/uL Baso # (Auto) 0.0 (0.0-0.1) K/uL Nucleated RBC % 0.0 /100WBC Nucleated RBCs # 0 K/uL INR 1.00 Sodium 142 (136-145) mmol/L Potassium 3.6 (3.5-5.1) mmol/L Chloride 105 (98-107) mmol/L Carbon Dioxide 25.5 (21.0-32.0) mmol/L BUN 38 H (7.0-18.0) mg/dL Creatinine 1.6 H (0.6-1.0) mg/dL Est Cr Clr Drug Dosing 30.93 mL/min Estimated GFR (MDRD) 32.9 ml/min Glucose 99 (74-106) mg/dL Calcium 9.6 (8.5-10.1) mg/dL Total Bilirubin 0.4 (0.2-1.0) mg/dL AST 16 (15-37) IU/L ALT 27 (14-63) IU/L Alkaline Phosphatase 126 H (46-116) U/L Troponin I < 0.050 (0.000-0.056) ng/mL Total Protein 7.0 (6.4-8.2) g/dL Albumin 3.3 L (3.4-5.0) g/dL Globulin 3.7 (2.6-4.0) g/dL Albumin/Globulin Ratio 0.9 (0.9-1.6) Blood Type Antibody Screen 06/08/19 Range/Units 12:10 WBC (4.0-11.0) K/uL RBC (4.30-5.90) M/uL Hgb (12.0-16.0) g/dL Hct (36.0-46.0) % MCV (80.0-98.0) fL MCH (27.0-32.0) pg MCHC (31.0-37.0) g/dL RDW Std Deviation (28.0-62.0) fl RDW Coeff of [place] (11.0-15.0) % Plt Count (150-400) K/uL MPV (7.40-12.00) fL Neut % (Auto) (48.0-80.0) % Lymph % (Auto) (16.0-40.0) % [place] % (Auto) (0.0-15.0) % Eos % (Auto) (0.0-7.0) % Baso % (Auto) (0.0-1.5) % Neut # (Auto) (1.4-5.7) K/uL Lymph # (Auto) (0.6-2.4) K/uL [place] # (Auto) (0.0-0.8) K/uL Eos # (Auto) (0.0-0.7) K/uL Baso # (Auto) (0.0-0.1) K/uL Nucleated RBC % /100WBC Nucleated RBCs # K/uL INR Sodium (136-145) mmol/L Potassium (3.5-5.1) mmol/L Chloride (98-107) mmol/L Carbon Dioxide (21.0-32.0) mmol/L BUN (7.0-18.0) mg/dL Creatinine (0.6-1.0) mg/dL Est Cr Clr Drug Dosing mL/min Estimated GFR (MDRD) ml/min Glucose (74-106) mg/dL Calcium (8.5-10.1) mg/dL Total Bilirubin (0.2-1.0) mg/dL AST (15-37) IU/L ALT (14-63) IU/L Alkaline Phosphatase (46-116) U/L Troponin I (0.000-0.056) ng/mL Total Protein (6.4-8.2) g/dL Albumin (3.4-5.0) g/dL Globulin (2.6-4.0) g/dL Albumin/Globulin Ratio (0.9-1.6) Blood Type AB POSITIVE Antibody Screen NEGATIVE Result Diagrams: 06/08/19 11:55 06/08/19 11:55 Problem List Initiated/Reviewed/Updated: Yes Orders Last 24hrs: Active Orders 24 hr Category Date Time Status Patient Status [ADT] Stat ADT 06/08/19 13:13 Active Blood Glucose Check, Bedside [RC] TIDMEALS Care 06/08/19 14:59 Ordered Cardiac Monitoring [RC] . DIRECTED Care 06/08/19 11:55 Active Oxygen Therapy [RC] PRN Care 06/08/19 14:54 Ordered Up ad Shaniqua [RC] ASDIRECTED Care 06/08/19 14:54 Ordered VTE/DVT Education [RC] PER UNIT ROUTINE Care 06/08/19 14:54 Ordered Vital Signs [RC] Q4H Care 06/08/19 14:54 Ordered [place] [employer] Diet [DIET] Diet 06/08/19 Lunch Ordered CBC WITH AUTO DIFF [HEME] AM Lab 06/09/19 05:11 Ordered COMPREHENSIVE METABOLIC PN,CMP [CHEM] AM Lab 06/09/19 05:11 Ordered FERRITIN [CHEM] Routine Lab 06/08/19 14:48 Ordered IRON/TIBC [CHEM] Routine Lab 06/08/19 14:48 Ordered OCCULT BLOOD DIAGNOSTIC [OP] Routine Lab 06/08/19 14:49 Ordered TROPONIN I [CHEM] Q6H Lab 06/08/19 18:00 Ordered TROPONIN I [CHEM] Q6H Lab 06/09/19 00:00 Ordered URINALYSIS W/MICROSCOPIC [UA W/MICROSCOPIC] [URIN] Lab 06/08/19 14:47 Ordered Routine Acetaminophen [Tylenol] Med 06/08/19 14:54 Ordered 650 mg PO Q4H PRN Amitriptyline [Elavil] Med 06/08/19 21:00 Ordered 10 mg PO BEDTIME Carvedilol [Coreg] Med 06/08/19 21:00 Ordered 12.5 mg PO BID Clopidogrel [Plavix] Med 06/09/19 09:00 Ordered 75 mg PO DAILY Enoxaparin [Lovenox] Med 06/08/19 15:00 Ordered 30 mg SUBCUT Q24H Levothyroxine Med 06/09/19 07:30 Ordered 150 mcg PO ACBREAKFAST Ondansetron [Zofran ODT] Med 06/08/19 14:54 Ordered 4 mg PO Q4H PRN Ondansetron [Zofran] Med 06/08/19 14:54 Ordered 4 mg IVPUSH Q4H PRN Rosuvastatin Calcium [Rosuvastatin Calcium] Med 06/08/19 21:00 Ordered 40 mg PO BEDTIME Sodium Chloride 0.9% [Normal Saline] 1,000 ml Med 06/08/19 14:52 Ordered IV NOW Sodium Chloride 0.9% [Saline Flush] Med 06/08/19 11:56 Active 10 ml FLUSH ASDIRECTED PRN Sodium Chloride 0.9% [Saline Flush] Med 06/08/19 11:56 Active 2.5 ml FLUSH ASDIRECTED PRN buPROPion [Wellbutrin SR] Med 06/09/19 09:00 Ordered 150 mg PO DAILY Saline Lock Insert [OM.PC] Stat Oth 06/08/19 11:55 Ordered Resuscitation Status Routine Resus Stat 06/08/19 14:54 Ordered Medication Orders Acetaminophen (Tylenol) 650 mg PO Q4H PRN PRN Reason: Pain (Mild 1-3)/fever Amitriptyline HCl (Elavil) 10 mg PO BEDTIME ARIK Bupropion HCl (Wellbutrin Sr) 150 mg PO DAILY ARIK Carvedilol (Coreg) 12.5 mg PO BID ARIK Clopidogrel Bisulfate (Plavix) 75 mg PO DAILY ARIK Enoxaparin Sodium (Lovenox) 30 mg SUBCUT Q24H ARIK Sodium Chloride (Normal Saline) 1,000 mls @ 125 mls/hr IV NOW STA Stop: 06/08/19 22:51 Levothyroxine Sodium (Levothyroxine) 150 mcg PO ACBREAKFAST ARIK Non-Formulary Medication (Rosuvastatin Calcium [Rosuvastatin Calcium]) 40 mg PO BEDTIME ARIK Ondansetron HCl (Zofran Odt) 4 mg PO Q4H PRN PRN Reason: nausea, able to take PO Ondansetron HCl (Zofran) 4 mg IVPUSH Q4H PRN PRN Reason: Nausea Sodium Chloride (Saline Flush) 10 ml FLUSH ASDIRECTED PRN PRN Reason: Keep Vein Open Sodium Chloride (Saline Flush) 2.5 ml FLUSH ASDIRECTED PRN PRN Reason: Keep Vein Open Assessment/Plan Comment:: Assessment: 1. Non-anginal chest pain in a patient with type 1 DM and history of CAD sp stent, ACS rule out. 2. Hypotension. 3. Right foot stump wound. 4. Leukocytosis. 5. Normocytic anemia. 6. Chronic kidney disease. 7. Type 1 diabetes mellitus. 8. Past medical history of: CAD sp stents, HTN, hyperlipidemia, stroke and hypothyroidism. Plan: 1. For chest pain, will trend troponin q6h. Initial troponin was negative. EKG showed no acute changes. 2. For hypotension, patient received 1L IV fluid bolus in ER. Will start patient on 125 cc/hr IV normal saline. Will hold anti-hypertensive medications and continue to monitor blood pressure. Will order lab occult stool test. 3. For right foot stump wound, patient has been changing dressings daily and applying ointment cream. Will continue daily dressing changes. Consult wound care. Patient reports seeing managed care nurse 3 weeks ago for the right foot wound and is to follow-up in approximately 1 week. 4. For leukocytosis, will monitor with next set of labs. 5. For normocytic anemia, will order iron, TIBC and ferritin. 6. For type 1 diabetes mellitus, patient has insulin pump. Will monitor blood glucose with bedside accu-cheks TIDWM. 7. For past medical history, will continue with home medications with the exception of patient's anti-hypertensive medications which have been held for now.
[2019-06-08] MEDS ORDERED: Amitriptyline 10 MG Tab PO SCH (21:00)
[2019-06-08] MEDS ORDERED: Rosuvastatin 10 MG Tab PO SCH (21:00)
[2019-06-08] MEDS: Carvedilol 12.5 MG Tab PO SCH (21:06)
[2019-06-08] MEDS: traMADol 50 MG Tab PO PRN (21:11)
[2019-06-09 06:08] LABS: CARBON DIOXIDE,CO2 24.8 mmol/L (21.0-32.0); POTASSIUM,K 3.5 mmol/L (3.5-5.1)
[2019-06-09] MEDS ORDERED: Pantoprazole 40 MG Tab.CR PO SCH (07:30)
[2019-06-09] MEDS ORDERED: Levothyroxine 150 MCG Tab PO SCH (07:30)
[2019-06-09] MEDS ORDERED: Levothyroxine 100 MCG Tab PO SCH (07:30)
[2019-06-09] MEDS: traMADol 50 MG Tab PO PRN (08:49)
[2019-06-09] MEDS: Carvedilol 12.5 MG Tab PO SCH ×2 (08:50→09:05)
[2019-06-09] MEDS ORDERED: buPROPion 150 MG Tab.SR PO SCH (09:00)
[2019-06-09] MEDS ORDERED: Clopidogrel 75 MG Tab PO SCH (09:00)
[2019-06-09] MEDS ORDERED: Aspirin 325 MG Tab PO ONE (09:00)
--- NOTE | 2019-06-09 11:17 | PCM.DCSUM1 ---
<Navin Patrick M - Last Filed: 06/09/19 11:09> Discharge Summary - Hospital Course Free Text/Narrative:: Patient is a 59-year-old female admitted for hypotension and non-anginal chest pain. She has a PMH of diabetes mellitus type 1 and CAD sp stent placement. EKG on admission showed no acute changes and was normal sinus rhythm. CXR was negative. Troponins were trended and were negative x 3. Patient was on telemetry and remained in normal sinus rhythm. Patient's blood pressure on admission was 93/75 mm Hg and she was started on IV fluids. Her anti- hypertensive medications were held. Her blood pressure did improve and at time of discharge was 114/62 mm Hg. Patient also reported no reoccurrence of substernal chest pain. On discharge, patient instructed to take carvedilol 12.5 mg BID, lasix 40 mg in AM and 20 mg in PM, quinapril reduced to 5mg daily and hydrochlorothiazide was discontinued. Patient's TSH also found to be elevated in hospital, no dose changes made to her levothyroxine at time of discharge. Patient instructed to follow-up with her PCP to have her blood pressure checked and to follow-up on thyroid hormone levels. Patient would also benefit from out- patient ECHO study. - Discharge Data Discharge Date: 06/09/19 Discharge Disposition: Home, Self-Care 01 Condition: Good - Patient Summary/Data Consults: Consultations 06/08/19 15:32 Consult to Wound Care Services [CONS] Routine - Patient Instructions Diet: Diabetic Diet Activity: As Tolerated Notify Provider of: Fever, Increased Pain, Swelling and Redness, Drainage, Nausea and/or Vomiting - Discharge Plan *PRESCRIPTION DRUG MONITORING PROGRAM REVIEWED*: Not Applicable *COPY OF PRESCRIPTION DRUG MONITORING REPORT IN PATIENT YOSSI: Not Applicable Prescriptions/Med Rec: Quinapril [Accupril] 5 mg PO DAILY 30 Days #30 tab Home Medications: Home Meds Carvedilol 12.5 mg PO BID 01/27/18 [History] Clopidogrel [Plavix] 75 mg PO DAILY 01/27/18 [History] Lansoprazole [Prevacid] 30 mg PO DAILY 01/27/18 [History] Rosuvastatin Calcium 40 mg PO BEDTIME 01/27/18 [History] Amitriptyline [Elavil] 10 mg PO BEDTIME 06/08/19 [History] Diclofenac Sodium 1 applic TP TID PRN 06/08/19 [History] Furosemide 20 mg PO QPM 06/08/19 [History] Furosemide 40 mg PO QAM 06/08/19 [History] Insulin Aspart [NovoLOG] 0 unit SQ DAILY 06/08/19 [History] Levothyroxine 150 mcg PO ACBREAKFAST 06/08/19 [History] Oxycodone Myristate [Xtampza ER] 9 mg PO Q12H 06/08/19 [History] buPROPion HCl [Wellbutrin SR] 150 mg PO DAILY 06/08/19 [History] traMADol [Ultram] 100 mg PO Q6H PRN 06/08/19 [History] Quinapril [Accupril] 5 mg PO DAILY 30 Days #30 tab 06/09/19 [Rx] Patient Handouts: Hypotension, [id number], Quinapril tablets, Coronary Artery Disease, Female Referrals: Leona Joseph MD [Primary Care Provider] [facility] - - Discharge Summary/Plan Comment DC Time >30 min.: No - Patient Data Vitals - Most Recent: Last Vital Signs Temp 97 F 06/09/19 10:52 Pulse 91 06/09/19 10:52 Resp 18 06/09/19 10:52 BP 114/62 06/09/19 10:52 Pulse Ox 97 06/09/19 10:52 Weight - Most Recent: 80.428 kg I&O - Last 24 hours: Intake & Output 06/08/19 06/09/19 06/09/19 22:59 06:59 14:59 Intake Total 240 720 Output Total 1000 950 Balance -760 -230 Lab Results - Last 24 hrs: Laboratory Results - last 24 hr 06/08/19 06/08/19 06/08/19 Range/Units 11:55 11:55 11:55 WBC 12.44 H (4.0-11.0) K/uL RBC 3.54 L (4.30-5.90) M/uL Hgb 10.1 L (12.0-16.0) g/dL Hct 31.5 L (36.0-46.0) % MCV 89.0 (80.0-98.0) fL MCH 28.5 (27.0-32.0) pg MCHC 32.1 (31.0-37.0) g/dL RDW Std Deviation 50.1 (28.0-62.0) fl RDW Coeff of Tamica 15 (11.0-15.0) % Plt Count 302 (150-400) K/uL MPV 8.70 (7.40-12.00) fL Neut % (Auto) 64.5 (48.0-80.0) % Lymph % (Auto) 26.9 (16.0-40.0) % [place] % (Auto) 4.6 (0.0-15.0) % Eos % (Auto) 3.7 (0.0-7.0) % Baso % (Auto) 0.3 (0.0-1.5) % Neut # (Auto) 8.0 H (1.4-5.7) K/uL Lymph # (Auto) 3.4 H (0.6-2.4) K/uL [place] # (Auto) 0.6 (0.0-0.8) K/uL Eos # (Auto) 0.5 (0.0-0.7) K/uL Baso # (Auto) 0.0 (0.0-0.1) K/uL Nucleated RBC % 0.0 /100WBC Nucleated RBCs # 0 K/uL INR 1.00 Sodium 142 (136-145) mmol/L Potassium 3.6 (3.5-5.1) mmol/L Chloride 105 (98-107) mmol/L Carbon Dioxide 25.5 (21.0-32.0) mmol/L BUN 38 H (7.0-18.0) mg/dL Creatinine 1.6 H (0.6-1.0) mg/dL Est Cr Clr Drug Dosing 30.93 mL/min Estimated GFR (MDRD) 32.9 ml/min Glucose 99 (74-106) mg/dL POC Glucose (60-110) mg/dL Calcium 9.6 (8.5-10.1) mg/dL Iron (50-175) ug/dL TIBC (250-450) ug/dL % Saturation (20-55) % Ferritin (8-252) ng/mL Total Bilirubin 0.4 (0.2-1.0) mg/dL AST 16 (15-37) IU/L ALT 27 (14-63) IU/L Alkaline Phosphatase 126 H (46-116) U/L Troponin I < 0.050 (0.000-0.056) ng/mL Total Protein 7.0 (6.4-8.2) g/dL Albumin 3.3 L (3.4-5.0) g/dL Globulin 3.7 (2.6-4.0) g/dL Albumin/Globulin Ratio 0.9 (0.9-1.6) TSH 3rd Generation (0.36-3.74) uIU/mL Urine Color Urine Appearance Urine pH (5.0-8.0) Ur Specific [place] (1.001-1.035) Urine Protein (NEGATIVE) mg/dL Urine Glucose (UA) (NEGATIVE) mg/dL Urine Ketones (NEGATIVE) mg/dL Urine Occult Blood (NEGATIVE) Urine Nitrite (NEGATIVE) Urine Bilirubin (NEGATIVE) Urine Urobilinogen (<2.0) EU/dL Ur Leukocyte Esterase (NEGATIVE) Urine RBC (0-2/HPF) Urine WBC (0-5/HPF) Ur Epithelial Cells (NONE-FEW) Urine Bacteria (NEGATIVE) Urine Mucus (NONE-MOD) Blood Type Antibody Screen 06/08/19 06/08/19 06/08/19 Range/Units 12:10 14:48 15:35 WBC (4.0-11.0) K/uL RBC (4.30-5.90) M/uL Hgb (12.0-16.0) g/dL Hct (36.0-46.0) % MCV (80.0-98.0) fL MCH (27.0-32.0) pg MCHC (31.0-37.0) g/dL RDW Std Deviation (28.0-62.0) fl RDW Coeff of Tam[place] (11.0-15.0) % Plt Count (150-400) K/uL MPV (7.40-12.00) fL Neut % (Auto) (48.0-80.0) % Lymph % (Auto) (16.0-40.0) % [place] % (Auto) (0.0-15.0) % Eos % (Auto) (0.0-7.0) % Baso % (Auto) (0.0-1.5) % Neut # (Auto) (1.4-5.7) K/uL Lymph # (Auto) (0.6-2.4) K/uL [place] # (Auto) (0.0-0.8) K/uL Eos # (Auto) (0.0-0.7) K/uL Baso # (Auto) (0.0-0.1) K/uL Nucleated RBC % /100WBC Nucleated RBCs # K/uL INR Sodium (136-145) mmol/L Potassium (3.5-5.1) mmol/L Chloride (98-107) mmol/L Carbon Dioxide (21.0-32.0) mmol/L BUN (7.0-18.0) mg/dL Creatinine (0.6-1.0) mg/dL Est Cr Clr Drug Dosing mL/min Estimated GFR (MDRD) ml/min Glucose (74-106) mg/dL POC Glucose (60-110) mg/dL Calcium (8.5-10.1) mg/dL Iron 68 (50-175) ug/dL TIBC 255 (250-450) ug/dL % Saturation 26.67 (20-55) % Ferritin 319 H (8-252) ng/mL Total Bilirubin (0.2-1.0) mg/dL AST (15-37) IU/L ALT (14-63) IU/L Alkaline Phosphatase (46-116) U/L Troponin I (0.000-0.056) ng/mL Total Protein (6.4-8.2) g/dL Albumin (3.4-5.0) g/dL Globulin (2.6-4.0) g/dL Albumin/Globulin Ratio (0.9-1.6) TSH 3rd Generation (0.36-3.74) uIU/mL Urine Color YELLOW Urine Appearance CLEAR Urine pH 5.5 (5.0-8.0) Ur Specific [place] 1.010 (1.001-1.035) Urine Protein NEGATIVE (NEGATIVE) mg/dL Urine Glucose (UA) NEGATIVE (NEGATIVE) mg/dL Urine Ketones NEGATIVE (NEGATIVE) mg/dL Urine Occult Blood NEGATIVE (NEGATIVE) Urine Nitrite NEGATIVE (NEGATIVE) Urine Bilirubin NEGATIVE (NEGATIVE) Urine Urobilinogen 0.2 (<2.0) EU/dL Ur Leukocyte Esterase TRACE H (NEGATIVE) Urine RBC 0-1 (0-2/HPF) Urine WBC 1-3 (0-5/HPF) Ur Epithelial Cells FEW (NONE-FEW) Urine Bacteria FEW (NEGATIVE) Urine Mucus LIGHT (NONE-MOD) Blood Type AB POSITIVE Antibody Screen NEGATIVE 06/08/19 06/08/19 06/08/19 Range/Units 15:41 16:40 18:35 WBC (4.0-11.0) K/uL RBC (4.30-5.90) M/uL Hgb (12.0-16.0) g/dL Hct (36.0-46.0) % MCV (80.0-98.0) fL MCH (27.0-32.0) pg MCHC (31.0-37.0) g/dL RDW Std Deviation (28.0-62.0) fl RDW Coeff of Tam[place] (11.0-15.0) % Plt Count (150-400) K/uL MPV (7.40-12.00) fL Neut % (Auto) (48.0-80.0) % Lymph % (Auto) (16.0-40.0) % [place] % (Auto) (0.0-15.0) % Eos % (Auto) (0.0-7.0) % Baso % (Auto) (0.0-1.5) % Neut # (Auto) (1.4-5.7) K/uL Lymph # (Auto) (0.6-2.4) K/uL [place] # (Auto) (0.0-0.8) K/uL Eos # (Auto) (0.0-0.7) K/uL Baso # (Auto) (0.0-0.1) K/uL Nucleated RBC % /100WBC Nucleated RBCs # K/uL INR Sodium (136-145) mmol/L Potassium (3.5-5.1) mmol/L Chloride (98-107) mmol/L Carbon Dioxide (21.0-32.0) mmol/L BUN (7.0-18.0) mg/dL Creatinine (0.6-1.0) mg/dL Est Cr Clr Drug Dosing mL/min Estimated GFR (MDRD) ml/min Glucose (74-106) mg/dL POC Glucose 123 H (60-110) mg/dL Calcium (8.5-10.1) mg/dL Iron (50-175) ug/dL TIBC (250-450) ug/dL % Saturation (20-55) % Ferritin (8-252) ng/mL Total Bilirubin (0.2-1.0) mg/dL AST (15-37) IU/L ALT (14-63) IU/L Alkaline Phosphatase (46-116) U/L Troponin I < 0.050 (0.000-0.056) ng/mL Total Protein (6.4-8.2) g/dL Albumin (3.4-5.0) g/dL Globulin (2.6-4.0) g/dL Albumin/Globulin Ratio (0.9-1.6) TSH 3rd Generation 11.59 H (0.36-3.74) uIU/mL Urine Color Urine Appearance Urine pH (5.0-8.0) Ur Specific [place] (1.001-1.035) Urine Protein (NEGATIVE) mg/dL Urine Glucose (UA) (NEGATIVE) mg/dL Urine Ketones (NEGATIVE) mg/dL Urine Occult Blood (NEGATIVE) Urine Nitrite (NEGATIVE) Urine Bilirubin (NEGATIVE) Urine Urobilinogen (<2.0) EU/dL Ur Leukocyte Esterase (NEGATIVE) Urine RBC (0-2/HPF) Urine WBC (0-5/HPF) Ur Epithelial Cells (NONE-FEW) Urine Bacteria (NEGATIVE) Urine Mucus (NONE-MOD) Blood Type Antibody Screen 06/08/19 06/09/19 06/09/19 Range/Units 21:20 00:15 05:17 WBC 7.97 (4.0-11.0) K/uL RBC 3.30 L (4.30-5.90) M/uL Hgb 9.3 L (12.0-16.0) g/dL Hct 29.4 L (36.0-46.0) % MCV 89.1 (80.0-98.0) fL MCH 28.2 (27.0-32.0) pg MCHC 31.6 (31.0-37.0) g/dL RDW Std Deviation 49.2 (28.0-62.0) fl RDW Coeff of Tam[place] 15 (11.0-15.0) % Plt Count 272 (150-400) K/uL MPV 8.80 (7.40-12.00) fL Neut % (Auto) 48.6 (48.0-80.0) % Lymph % (Auto) 36.8 (16.0-40.0) % [place] % (Auto) 8.8 (0.0-15.0) % Eos % (Auto) 5.5 (0.0-7.0) % Baso % (Auto) 0.3 (0.0-1.5) % Neut # (Auto) 3.9 (1.4-5.7) K/uL Lymph # (Auto) 2.9 H (0.6-2.4) K/uL [place] # (Auto) 0.7 (0.0-0.8) K/uL Eos # (Auto) 0.4 (0.0-0.7) K/uL Baso # (Auto) 0.0 (0.0-0.1) K/uL Nucleated RBC % 0.0 /100WBC Nucleated RBCs # 0 K/uL INR Sodium (136-145) mmol/L Potassium (3.5-5.1) mmol/L Chloride (98-107) mmol/L Carbon Dioxide (21.0-32.0) mmol/L BUN (7.0-18.0) mg/dL Creatinine (0.6-1.0) mg/dL Est Cr Clr Drug Dosing mL/min Estimated GFR (MDRD) ml/min Glucose (74-106) mg/dL POC Glucose 178 H (60-110) mg/dL Calcium (8.5-10.1) mg/dL Iron (50-175) ug/dL TIBC (250-450) ug/dL % Saturation (20-55) % Ferritin (8-252) ng/mL Total Bilirubin (0.2-1.0) mg/dL AST (15-37) IU/L ALT (14-63) IU/L Alkaline Phosphatase (46-116) U/L Troponin I < 0.050 (0.000-0.056) ng/mL Total Protein (6.4-8.2) g/dL Albumin (3.4-5.0) g/dL Globulin (2.6-4.0) g/dL Albumin/Globulin Ratio (0.9-1.6) TSH 3rd Generation (0.36-3.74) uIU/mL Urine Color Urine Appearance Urine pH (5.0-8.0) Ur Specific [place] (1.001-1.035) Urine Protein (NEGATIVE) mg/dL Urine Glucose (UA) (NEGATIVE) mg/dL Urine Ketones (NEGATIVE) mg/dL Urine Occult Blood (NEGATIVE) Urine Nitrite (NEGATIVE) Urine Bilirubin (NEGATIVE) Urine Urobilinogen (<2.0) EU/dL Ur Leukocyte Esterase (NEGATIVE) Urine RBC (0-2/HPF) Urine WBC (0-5/HPF) Ur Epithelial Cells (NONE-FEW) Urine Bacteria (NEGATIVE) Urine Mucus (NONE-MOD) Blood Type Antibody Screen 06/09/19 06/09/19 Range/Units 05:17 06:52 WBC (4.0-11.0) K/uL RBC (4.30-5.90) M/uL Hgb (12.0-16.0) g/dL Hct (36.0-46.0) % MCV (80.0-98.0) fL MCH (27.0-32.0) pg MCHC (31.0-37.0) g/dL RDW Std Deviation (28.0-62.0) fl RDW Coeff of Tam[place] (11.0-15.0) % Plt Count (150-400) K/uL MPV (7.40-12.00) fL Neut % (Auto) (48.0-80.0) % Lymph % (Auto) (16.0-40.0) % [place] % (Auto) (0.0-15.0) % Eos % (Auto) (0.0-7.0) % Baso % (Auto) (0.0-1.5) % Neut # (Auto) (1.4-5.7) K/uL Lymph # (Auto) (0.6-2.4) K/uL [place] # (Auto) (0.0-0.8) K/uL Eos # (Auto) (0.0-0.7) K/uL Baso # (Auto) (0.0-0.1) K/uL Nucleated RBC % /100WBC Nucleated RBCs # K/uL INR Sodium 143 (136-145) mmol/L Potassium 3.5 (3.5-5.1) mmol/L Chloride 108 H (98-107) mmol/L Carbon Dioxide 24.8 (21.0-32.0) mmol/L BUN 28 H (7.0-18.0) mg/dL Creatinine 1.2 H (0.6-1.0) mg/dL Est Cr Clr Drug Dosing 41.24 mL/min Estimated GFR (MDRD) 45.8 ml/min Glucose 111 H (74-106) mg/dL POC Glucose 93 (60-110) mg/dL Calcium 8.6 (8.5-10.1) mg/dL Iron (50-175) ug/dL TIBC (250-450) ug/dL % Saturation (20-55) % Ferritin (8-252) ng/mL Total Bilirubin 0.4 (0.2-1.0) mg/dL AST 14 L (15-37) IU/L ALT 23 (14-63) IU/L Alkaline Phosphatase 103 (46-116) U/L Troponin I (0.000-0.056) ng/mL Total Protein 6.0 L (6.4-8.2) g/dL Albumin 2.7 L (3.4-5.0) g/dL Globulin 3.3 (2.6-4.0) g/dL Albumin/Globulin Ratio 0.8 L (0.9-1.6) TSH 3rd Generation (0.36-3.74) uIU/mL Urine Color Urine Appearance Urine pH (5.0-8.0) Ur Specific [place] (1.001-1.035) Urine Protein (NEGATIVE) mg/dL Urine Glucose (UA) (NEGATIVE) mg/dL Urine Ketones (NEGATIVE) mg/dL Urine Occult Blood (NEGATIVE) Urine Nitrite (NEGATIVE) Urine Bilirubin (NEGATIVE) Urine Urobilinogen (<2.0) EU/dL Ur Leukocyte Esterase (NEGATIVE) Urine RBC (0-2/HPF) Urine WBC (0-5/HPF) Ur Epithelial Cells (NONE-FEW) Urine Bacteria (NEGATIVE) Urine Mucus (NONE-MOD) Blood Type Antibody Screen VIRGILIO Results - Last 24 hrs: Microbiology 06/08/19 19:00 Stool Occult Blood (VIRGILIO) - Final Stool / Feces NEGATIVE OCCULT BLOOD REFERENCE RANGE: NEGATIVE Med Orders - Current: Current Medications Acetaminophen (Tylenol) 650 mg PO Q4H PRN PRN Reason: Pain (Mild 1-3)/fever Amitriptyline HCl (Elavil) 10 mg PO BEDTIME [facility] Last Admin: 06/08/19 21:05 Dose: 10 mg Bupropion HCl (Wellbutrin Sr) 150 mg PO DAILY [facility] Last Admin: 06/09/19 08:50 Dose: 150 mg Carvedilol (Coreg) 12.5 mg PO BID [facility] Last Admin: 06/09/19 09:05 Dose: 12.5 mg Clopidogrel Bisulfate (Plavix) 75 mg PO DAILY [facility] Last Admin: 06/09/19 08:50 Dose: 75 mg Enoxaparin Sodium (Lovenox) 30 mg SUBCUT Q24H [facility] Last Admin: 06/08/19 16:06 Dose: 30 mg Insulin Aspart (Novolog) 0 unit SUBCUT TIDAC [facility] Last Admin: 06/09/19 06:58 Dose: Not Given Levothyroxine Sodium (Synthroid) 200 mcg PO ACBREAKFAST [facility] Last Admin: 06/09/19 06:54 Dose: 200 mcg Ondansetron HCl (Zofran Odt) 4 mg PO Q4H PRN PRN Reason: nausea, able to take PO Ondansetron HCl (Zofran) 4 mg IVPUSH Q4H PRN PRN Reason: Nausea Pantoprazole Sodium (Protonix) 40 mg PO ACBREAKFAST [facility] Last Admin: 06/09/19 08:50 Dose: 40 mg Rosuvastatin Calcium (Crestor) 40 mg PO BEDTIME [facility] Last Admin: 06/08/19 21:05 Dose: 40 mg Sodium Chloride (Saline Flush) 10 ml FLUSH ASDIRECTED PRN PRN Reason: Keep Vein Open Sodium Chloride (Saline Flush) 2.5 ml FLUSH ASDIRECTED PRN PRN Reason: Keep Vein Open Tramadol HCl (Ultram) 100 mg PO Q6H PRN PRN Reason: Pain Last Admin: 06/09/19 08:49 Dose: 100 mg Discontinued Medications Aspirin (Aspirin) 325 mg PO DAILY ONE Stop: 06/09/19 09:01 Last Admin: 06/09/19 08:48 Dose: 325 mg Sodium Chloride (Normal Saline) 1,000 mls @ 999 mls/hr IV STAT ONE Stop: 06/08/19 12:56 Last Admin: 06/08/19 12:08 Dose: 999 mls/hr Sodium Chloride (Normal Saline) Confirm Administered Dose 20 mls @ as directed .ROUTE .STK-MED ONE Stop: 06/08/19 12:03 Last Admin: 06/08/19 13:30 Dose: Not Given Sodium Chloride (Normal Saline) 1,000 mls @ 125 mls/hr IV NOW STA Stop: 06/08/19 22:51 Last Admin: 06/08/19 16:01 Dose: 125 mls/hr Levothyroxine Sodium (Levothyroxine) 150 mcg PO ACBREAKFAST [facility] Pantoprazole Sodium (Protonix Iv) 80 mg IVPUSH .BOLUS ONE Stop: 06/08/19 11:57 Last Admin: 06/08/19 12:08 Dose: 80 mg - Exam General: Reports: Alert, Oriented, Cooperative, No Acute Distress Lungs: Reports: Clear to Auscultation, Normal Respiratory Effort Cardiovascular: Reports: Regular Rate, Regular Rhythm GI/Abdominal Exam: Normal Bowel Sounds, Soft, Non-Tender, No Distention Extremities: Other (right foot stump - dressings c/d/i. left lower extremity - no edema appreciated.) <Jerson Lorenzo J - Last Filed: 06/15/19 19:29> Discharge Summary - Patient Summary/Data Consults: Consultations 06/08/19 15:32 Consult to Wound Care Services [CONS] Routine - Patient Data Vitals - Most Recent: Last Vital Signs Temp 36.1 C 06/09/19 10:52 Pulse 90 06/09/19 12:35 Resp 18 06/09/19 10:52 BP 105/59 L 06/09/19 12:35 Pulse Ox 97 06/09/19 10:52 Med Orders - Current: Current Medications Discontinued Medications Acetaminophen (Tylenol) 650 mg PO Q4H PRN PRN Reason: Pain (Mild 1-3)/fever Amitriptyline HCl (Elavil) 10 mg PO BEDTIME [facility] Last Admin: 06/08/19 21:05 Dose: 10 mg Aspirin (Aspirin) 325 mg PO DAILY ONE Stop: 06/09/19 09:01 Last Admin: 06/09/19 08:48 Dose: 325 mg Bupropion HCl (Wellbutrin Sr) 150 mg PO DAILY [facility] Last Admin: 06/09/19 08:50 Dose: 150 mg Carvedilol (Coreg) 12.5 mg PO BID [facility] Last Admin: 06/09/19 09:05 Dose: 12.5 mg Clopidogrel Bisulfate (Plavix) 75 mg PO DAILY [facility] Last Admin: 06/09/19 08:50 Dose: 75 mg Enoxaparin Sodium (Lovenox) 30 mg SUBCUT Q24H [facility] Last Admin: 06/08/19 16:06 Dose: 30 mg Sodium Chloride (Normal Saline) 1,000 mls @ 999 mls/hr IV STAT ONE Stop: 06/08/19 12:56 Last Admin: 06/08/19 12:08 Dose: 999 mls/hr Sodium Chloride (Normal Saline) Confirm Administered Dose 20 mls @ as directed .ROUTE .STK-MED ONE Stop: 06/08/19 12:03 Last Admin: 06/08/19 13:30 Dose: Not Given Sodium Chloride (Normal Saline) 1,000 mls @ 125 mls/hr IV NOW STA Stop: 06/08/19 22:51 Last Admin: 06/08/19 16:01 Dose: 125 mls/hr Insulin Aspart (Novolog) 0 unit SUBCUT TIDAC [facility] Last Admin: 06/09/19 12:29 Dose: Not Given Levothyroxine Sodium (Levothyroxine) 150 mcg PO ACBREAKFAST [facility] Levothyroxine Sodium (Synthroid) 200 mcg PO ACBREAKFAST [facility] Last Admin: 06/09/19 06:54 Dose: 200 mcg Ondansetron HCl (Zofran Odt) 4 mg PO Q4H PRN PRN Reason: nausea, able to take PO Ondansetron HCl (Zofran) 4 mg IVPUSH Q4H PRN PRN Reason: Nausea Pantoprazole Sodium (Protonix Iv) 80 mg IVPUSH .BOLUS ONE Stop: 06/08/19 11:57 Last Admin: 06/08/19 12:08 Dose: 80 mg Pantoprazole Sodium (Protonix) 40 mg PO ACBREAKFAST [facility] Last Admin: 06/09/19 08:50 Dose: 40 mg Rosuvastatin Calcium (Crestor) 40 mg PO BEDTIME [facility] Last Admin: 06/08/19 21:05 Dose: 40 mg Sodium Chloride (Saline Flush) 10 ml FLUSH ASDIRECTED PRN PRN Reason: Keep Vein Open Sodium Chloride (Saline Flush) 2.5 ml FLUSH ASDIRECTED PRN PRN Reason: Keep Vein Open Tramadol HCl (Ultram) 100 mg PO Q6H PRN PRN Reason: Pain Last Admin: 06/09/19 08:49 Dose: 100 mg - Free Text/Narrative Note: I have evaluated the patient. I have discussed findings and treatment plan with resident. I agree with the assessment and plan outlined in the following note.
== END 2019-06-09 12:40 | disposition home or self-care (01) ==
LOC: MW.ED 11:53 → MW.MS 13:13
PROVIDERS: ADMIT Internal Medicine; ATTEND Internal Medicine
DX: R07.89 Other chest pain (principal); I95.9 Hypotension, unspecified; E10.9 Type 1 diabetes mellitus without complications; I25.10 Atherosclerotic heart disease of native coronary artery without angina pectoris; E03.9 Hypothyroidism, unspecified; E78.00 Pure hypercholesterolemia, unspecified; I25.2 Old myocardial infarction; K21.9 Gastro-esophageal reflux disease without esophagitis; M19.90 Unspecified osteoarthritis, unspecified site; M51.36 Other intervertebral disc degeneration, lumbar region; F41.9 Anxiety disorder, unspecified; F32.9 Major depressive disorder, single episode, unspecified; T87.89 Other complications of amputation stump; S91.301A Unspecified open wound, right foot, initial encounter; D72.829 Elevated white blood cell count, unspecified; D64.9 Anemia, unspecified; I12.9 Hypertensive chronic kidney disease with stage 1 through stage 4 chronic kidney disease, or unspecified chronic kidney disease; E10.22 Type 1 diabetes mellitus with diabetic chronic kidney disease; N18.9 Chronic kidney disease, unspecified; Z95.5 Presence of coronary angioplasty implant and graft; Z79.899 Other long term (current) drug therapy; Z79.02 Long term (current) use of antithrombotics/antiplatelets; Z79.4 Long term (current) use of insulin; Z79.891 Long term (current) use of opiate analgesic; Z88.1 Allergy status to other antibiotic agents; Z86.73 Personal history of transient ischemic attack (TIA), and cerebral infarction without residual deficits
CPT/HCPCS: 36415; 71045; 80053; 81001; 82272; 82728; 82962; 83550; 84443; 84484; 85025; 85610; 86850; 86900; 86901; 96361; 96372; 96374; 99285; A9270; C9113; G0378; J1650; J7040; 99284

== ENCOUNTER 2023-04-18 07:27 | Day surgery (SDC) | payer BC, OTHER ==
[~2023-04-18 07:27] MED LIST changes: -Propofol 200 MG/20 ML SDV ONE; +Sodium Chloride 0.9% 20 ML SDV IV PRN
[2023-04-18] MEDS ORDERED: Lidocaine 2% 5 ML SDV ONE (07:58)
[2023-04-18] MEDS ORDERED: Propofol 200 MG/20 ML SDV ONE ×3 (07:59→09:00)
== END 2023-04-18 09:59 | disposition home or self-care (01) ==
LOC: MW.SDS 07:27
PROVIDERS: ATTEND Surgery
DX: K63.5 Polyp of colon (principal); K29.50 Unspecified chronic gastritis without bleeding; K31.89 Other diseases of stomach and duodenum; D64.9 Anemia, unspecified; K21.9 Gastro-esophageal reflux disease without esophagitis; E10.22 Type 1 diabetes mellitus with diabetic chronic kidney disease; I12.9 Hypertensive chronic kidney disease with stage 1 through stage 4 chronic kidney disease, or unspecified chronic kidney disease; N18.32 Chronic kidney disease, stage 3b; I25.10 Atherosclerotic heart disease of native coronary artery without angina pectoris; E10.42 Type 1 diabetes mellitus with diabetic polyneuropathy; E10.51 Type 1 diabetes mellitus with diabetic peripheral angiopathy without gangrene; F41.9 Anxiety disorder, unspecified; F32.A Depression, unspecified; G89.29 Other chronic pain; E78.00 Pure hypercholesterolemia, unspecified; E03.9 Hypothyroidism, unspecified; F17.210 Nicotine dependence, cigarettes, uncomplicated; Z80.0 Family history of malignant neoplasm of digestive organs; Z95.5 Presence of coronary angioplasty implant and graft; Z88.1 Allergy status to other antibiotic agents; Z79.890 Hormone replacement therapy; Z79.82 Long term (current) use of aspirin; Z79.4 Long term (current) use of insulin; Z79.899 Other long term (current) drug therapy; Z98.890 Other specified postprocedural states; Z79.02 Long term (current) use of antithrombotics/antiplatelets
CPT/HCPCS: 43239; 45380; 82947; J2704; J7120; 00813; J3490